=== PATIENT | male | born 1965 | race Caucasian/White ===

== ENCOUNTER 2022-03-14 14:05 | Emergency (ER) | payer OTHER, SELFPAY ==
[2022-03-14 14:49] VITALS: BP 156/95; PULSE 120; RESP 20; TEMP 38.5; O2SAT 92; BMI 52.3
[2022-03-14 15:53] LABS: PCR FLU A POSITIVE PCR FLU A (Negative); PCR FLU B Negative PCR FLU B (Negative); PCR RSV Negative PCR RSV (Negative)
[2022-03-14 15:54] LABS: SARS PCR* Negative SARS-CoV-2 (Negative)
--- NOTE | 2022-03-14 17:47 | ED.HA ---
HPI - Headache General Time Seen by Provider: 17:47 Date Seen: 03/14/22 Chief Complaint: Headache/Migraine Stated Complaint: Cough, headache Time Seen by Provider: 03/14/22 17:47 Source: patient, RN notes reviewed and old records reviewed Mode of arrival: ambulatory Limitations: no limitations History of Present Illness HPI Narrative: Roman is a very pleasant 56-year-old gentleman who comes to the emergency room with complaints of bitemporal headache increased phlegm and fever that has been on and off over the past month. Patient states that he started coughing in January but he took Mucinex and that seemed to help. Two weeks ago he had so much phlegm in his lungs that he actually laid down on the floor in order to help expel it according to his . She thinks that he was improving around Thanksgiving last week but then after the multiple grand children were present he was ?hit hard? and seemed to have more difficulty breathing. They do note that the young his grandchild was diagnosed with RSV. Patient states that in the past few days he has had increased headache, persistent cough to the point where some of his hernias are very painful as well as fever. He did take ibuprofen last night that complained of some abdominal pain and difficulty with stooling. He notes now he has loose stools and has been stooling today. He notes he has left ear pain but no sore throat no nasal drainage. No chest pain or history of heart problems. Denies history of DVT. Has not been bed ridden until today. He does note that he is currently awaiting his surgical consult for skin cancer on the back of his calf. He has not noticed any drainage or unusual redness in this area. Related Data Previous Rx's Medication Instructions Recorded albuterol sulfate 2.5 mg/3 mL 2.5 mg (3 mL) inhalation QID PRN 03/14/22 (0.083 %) solution for nebulization #75 mL amoxicillin 875 mg-potassium 1 tab PO BID #20 tabs 03/14/22 clavulanate 125 mg tablet azithromycin 250 mg tablet 250 mg PO DAILY #6 tabs 03/14/22 (Zithromax Z-Wilbert) prednisone 20 mg tablet 20 mg PO BID #10 tabs 03/14/22 Allergies Allergy/AdvReac Type Severity Reaction Status Date / Time No Known Drug Allergies Allergy Verified 03/14/22 14:59 Review of Systems Status of ROS: Reports: 10 or more systems reviewed and unremarkable except as noted in History and below Const: Reports: fever and fatigue Eyes: Denies: change in vision ENMT: Denies: throat pain, neck pain or hoarseness Cardio: Reports: lightheadedness and shortness of breath with exertion; Denies: chest pain or swelling of feet/ankles Resp: Reports: shortness of breath, cough and wheezing GI: Reports: abdominal pain (When coughing) and diarrhea; Denies: nausea or vomiting : Denies: painful urination Musculo: Denies: neck pain Neuro: Reports: headache (Bitemporal) Endo: Reports: fatigue Allergy/Immuno: Reports: wheezing Exam Narrative: Exam Narrative: Patient is alert and oriented. He is fatigued but nontoxic in appearance. His pupils are equal round and reactive. His sclera slightly injected. Left TM shows mild erythema without any bulging. Right TM within normal limits. Oral cavity with moist mucous membranes with no exudates or erythema in the posterior oropharynx. Neck is supple without lymphadenopathy. Range of motion is full. Heart with a tachycardic rate but normal rhythm. Lungs show crackles in the bases and wheezing in the upper apex on the left. Abdomen is obese soft nontender. Lower extremities without edema. Patient has a dime-size offer mass on the back of his right calf without surrounding erythema or drainage. Const: Vital Signs, click to edit/add: Vital Signs - 24 hr 03/14/22 14:49 03/14/22 18:20 Temperature 101.3 F H Pulse Rate [Right Pulse Oximeter] 120 H 100 Respiratory Rate 20 Blood Pressure [Ri ght Upper Arm] 156/95 H Pulse Oximetry 92 92 Oxygen Delivery Me thod Room Air Room Air Documenting provider has reviewed patient's vital signs: yes Course Course Hospital Course: Patient receptive to receiving ibuprofen as he has not received any. He is and told that he tested positive for influenza. Will give ibuprofen 600 mg along with omeprazole 20 mg for stomach protection. Patient also receptive to chest x-ray. Differential diagnosis does include COVID, influenza, RSV, bronchitis, pneumonia, sinusitis, COPD. At this time do not think that this is PE as patient has a fever as well as no record of inactivity or unusual lower extremity swelling or history of DVT. Patient test positive for influenza at this time. Reevaluation(s) Reevaluation #1: Repeat examination notes that wheezing has greatly improved. Patient appears to be feeling better although he has persistent headache. Further exam shows tenderness with percussion over the left frontal sinus. Patient does tell me that he has had blood come out of that of sinus previously. Vital Signs Vital signs: Initial Vital Signs Temperature 101.3 F H 03/14/22 14:49 Temperature Source Temporal Artery Scan 03/14/22 14:49 Pulse Rate 120 H 03/14/22 14:49 Respiratory Rate 20 03/14/22 14:49 Blood Pressure 156/95 H 03/14/22 14:49 Blood Pressure Mean 115 03/14/22 14:49 Blood Pressure Position Sitting 03/14/22 14:49 Pulse Oximetry 92 03/14/22 14:49 Oxygen Delivery Method 03/14/22 14:49 Vital Signs Temperature 101.3 F H 03/14/22 14:49 Pulse Rate 120 H 03/14/22 14:49 Respiratory Rate 20 03/14/22 14:49 Blood Pressure 156/95 H 03/14/22 14:49 Pulse Oximetry 92 03/14/22 14:49 Oxygen Delivery Method 03/14/22 14:49 Temperature 101.3 F H 03/14/22 14:49 Pulse Rate 100 03/14/22 18:20 Respiratory Rate 20 03/14/22 14:49 Blood Pressure 156/95 H 03/14/22 14:49 Pulse Oximetry 92 03/14/22 18:20 Oxygen Delivery Method 03/14/22 18:20 MDM - Headache MDM Narrative Medical decision making narrative: 1. Influenza a-likely this is the cause of patient's fever and headache. Patient did receive ibuprofen 600 mg here in the emergency room. He appears to be feeling mildly improved. Unfortunately he has been sick intermittently with recent increasing symptoms after Thanks and therefore not a candidate for Tamiflu. Neck is supple and range of motion full. No meningeal signs. 2. Bronchitis-patient notes intermittent respiratory wheezing and cough since January. I strongly suspect that he actually has underlying bronchitis and therefore would want to treat with an antibiotic. Chest x-ray without evidence of pneumonia at this time. Zithromax 500 mg today followed by 250 mg daily for 4 days. Albuterol nebulizers as needed. Patient did have improvement with a DuoNeb here in the emergency room. 3. Sinusitis-patient has tenderness over his left frontal sinus. He describes occasional blood from that Sanchez. No bleeding today. Recommend Augmentin 875 p.o. b.i.d. times 14 days. 2. Disposition-at this time we do talk about seeing CT to evaluate sinusitis or even blood test to do electrolytes but patient wishes to go home. I do request that if he has worsening symptoms worsening difficulty breathing as his O2 levels are 90-92% that he return to the emergency room for further evaluation. At that time would recommend imaging as well as blood draw. He does agree to this. Medical Records Attestation: I reviewed the patient's medical records. Lab Data Attestation: I reviewed the patient's lab results. Labs: Lab Results 03/14/22 Range/Units 15:01 SARS-CoV-2 (PCR) Negative SARS-CoV-2 (Negative) Influenza Type A (PCR) POSITIVE PCR FLU A A (Negative) Influenza Type B (PCR) Negative PCR FLU B (Negative) RSV (PCR) Negative PCR RSV (Negative) Imaging Data Chest x-ray: Attestation: I have reviewed the pertinent imaging results. My impression: Chronic lung markings but no obvious infiltrates Radiologist's impression: Cardiovascular and mediastinum: Heart size and vasculature are normal in caliber and appearance.? Mediastinum is within normal limits.? Lungs and pleural space: Lungs are clear.? No sign of infiltrate or mass.? No sign of pleural effusion.? No pneumothorax.? Bones and soft tissues: No significant findings.? IMPRESSION: Unremarkable chest. Discharge Plan Discharge Clinical Impression: Influenza A, Headache, Sinusitis, Bronchitis Patient Disposition: Home, Self-Care Condition: Improved Additional Instructions: Start Augmentin and Zithromax for sinusitis and bronchitis. Unfortunately this will not treat influenza a and you may continue to have fever and headache. I would recommend ibuprofen and Tylenol as needed. Push fluids. Nebulizer as needed. Return to the emergency room for worsening symptoms. Prescriptions: New azithromycin [Zithromax Z-Wilbert] 250 mg tablet 250 mg PO DAILY Qty: 6 0RF Rx Instructions: Take 500 mg or 2 tablets today. Thereafter 1 tablet daily for the remaining 4 days. amoxicillin-pot clavulanate 875-125 mg tablet 1 tab PO BID Qty: 20 0RF albuterol sulfate 2.5 mg /3 mL (0.083 %) solution for nebulization 2.5 mg inhalation QID PRNQty: 75 0RF prednisone 20 mg tablet 20 mg PO BID Qty: 10 0RF Follow Up/Referrals: Provider,Not a Local [Primary Care Provider] - Stand Alone Forms: [employer] Info Instructions
--- NOTE | 2022-03-14 17:57 | CRLHL7_ITS ---
For Patients: As a result of the Century Cures Act, medical imaging exams and procedure reports are released immediately into your electronic medical record. You may view this report before your referring provider. If you have questions, please contact your health care provider. INDICATION: WHEEZING TECHNIQUE: Chest 1 view. COMPARISON: None. FINDINGS: Cardiovascular and mediastinum: Heart size and vasculature are normal in caliber and appearance. Mediastinum is within normal limits. Lungs and pleural space: Lungs are clear. No sign of infiltrate or mass. No sign of pleural effusion. No pneumothorax. Bones and soft tissues: No significant findings. IMPRESSION: Unremarkable chest. Dictated by: Otis Aldana MD @ 03/14/2022 18:21:05 (Electronically Signed)
[2022-03-14] MEDS: IPRAT-ALBUT 0.5-2.5 MG/3 ML NEB 1 NEB IH (18:19)
[2022-03-14] MEDS: IBUPROFEN 200 MG TABLET 600 MG PO (18:19)
[2022-03-14] MEDS: OMEPRAZOLE 20 MG CAPSULE DR PO (18:19)
[2022-03-14 18:20] VITALS: PULSE 100; O2SAT 92
== END 2022-03-14 18:50 | disposition home or self-care (01) ==
PROVIDERS: Emergency Provider Family Medicine
DX: J10.1 Influenza due to other identified influenza virus with other respiratory manifestations (principal); J01.90 Acute sinusitis, unspecified; J40 Bronchitis, not specified as acute or chronic; Z20.822 Contact with and (suspected) exposure to COVID-19
CPT/HCPCS: 71046; 87502; 87634; 87635; 94640; 99284; A9270

== ENCOUNTER 2024-06-18 18:09 | Outpatient (CLI) | payer OTHER, SELFPAY | END 2024-06-18 18:10 | disposition home or self-care (01) | PROVIDERS: Visit Provider Nurse Practitioner Family | DX: R05.9 Cough, unspecified (principal) | CPT/HCPCS: 87070 ==

== ENCOUNTER 2025-01-27 15:00 | Inpatient (IN) | payer OTHER, SELFPAY ==
[2025-01-27] VITALS (20 sets, daily range): BP systolic 117–137; BP diastolic 69–82; PULSE 86–111; RESP 11–36; TEMP 37–38.8; O2SAT 89–95; BMI 44.1
--- OUTSIDE RECORDS SUMMARY | 2025-01-27 15:04 | XMS_ITS | Clinical Summary ---
Author Organization [facility] Address [address] [place] [id number] Care Team Providers Care Breaker Table Worker Name Role Phone Guilherme Greenberg MD Primary Care Provider + Allergies No known active allergies Medications lisinopriL (PRINIVIL; ZESTRIL) 40 mg tabletIndicatio ns:HTN (hypertension) Take 1 Tablet (40 mg) by mouth once daily. 90 Tablet 1 5 Active LORazepam 1 mg tabletIndicatio ns:Fear of flying Take either 1/2 or 1 whole tab 30 minutes before flying 2 Tablet 5 01/16/20 25 Discontinu ed(*Med complete/R egimen complete/L evel of care change) Active Problems No known active problems Encounters Date Type Department Care Team Description 01/17/2025 Telephone [facility] [address] [place] [address] Guilherme Greenberg MD Referral 01/15/2025 7:55 AM CDT Office Visit [facility] [address] [place] [address] Guilherme Greenberg MD Blood Pressure (Follow up, increased lisinopril) 01/15/2025 Travel 12/03/2024 7:30 AM CDT Office Visit [facility] [address] [place] [address] Guilherme Greenberg MD Blood Pressure (Follow up) 12/03/2024 Travel from Last 3 Months Immunizations Immunization Administration Dates Next Due Mumps 09/08/1978 Rubella 09/08/1978 Td (Age >=7 Years) 09/08/1978 Tdap 04/21/2021,02/08/2011 Family History Medical History Relation Name Comments Alcoholism Brother 1 Felice age 58, in sleep Diabetes Brother 1 Felice No Known Problems Brother 2 Luis Antonio Gout Father Hypertension Father Cancer-breast Mother Hypertension Sister 1 Aislinn No Known Problems Sister 2 Lisa Relation Name Status Comments Brother 1 Felice Brother 2 Luis Antonio Alive Father Alive Mother Alive Sister 1 Aislinn Alive Sister 2 Lisa Alive Social History Tobacco Use Types Packs/Day Years Used Date Smoking Tobacco: Former Cigarettes Q uit: 04/17/1985 Smokeless Tobacco: Never Tobacco Cessation:Counseling Given: Yes Alcohol Use Standard Drinks/Week Comments Yes 1 (1 standard drink = 0.6 oz pur e alcohol) 4-5 beers per week PHQ-2 Answer Date Recorded PHQ-2 TOTAL SCORE 0 05/23/2024 Social Connections Answer Date Recorded Do you often feel lonely or isolated from those around you? 0 01/15/2025 Alcohol Use Answer Date Recorded How often do you have a drink containing alcohol ? 2 01/15/2025 How many drinks containing a lcohol do you have on a typical day when you are drinking? 1 01/15/2025 How often do you have five or more drinks on one occasion? 1 01/15/2025 Financial Resource Strain Answer Date R ecorded Difficulty of Paying Living Expenses 3 01/15/2025 Difficulty of Paying Living Expenses Not on file 01/15/2025 Food Insecurity Answer Date Recorded Do you worry your food will run out before you are able to buy more? 1 01/15/2025 Transportation Needs Answer Date Record ed Does lack of transportation keep you from medica l appointments? 1 01/15/2025 Does lack of transportation keep you from work, meetings or getting things that you need? 1 01/15/2025 Housing Stability Answer Date Recorded What is your housing situation today? 1 01/15/2025 Utilities Answer Date Recorded Do you have trouble paying f or utilities (for example, heat, electricity, water, phone)? 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 Not on file Not on file Obstetrics History Last Filed Vital Signs Vital Sign Reading Time Taken Comments Blood Pressure 147/89 01/15/2025 7:50 AM CDT Pulse 78 01/15/2025 7:50 AM CDT Temperature 36.5 C (97.7 F) 05/23/2024 7:41 AM VIRTUAL RECRUITER Respiratory Rate 18 12/12/2018 11:0 0 AM CDT Oxygen Saturation 95% 01/15/2025 7:50 AM CDT Inhaled Oxygen Concentration - - Weight 133.5 kg (294 lb 6.4 oz) 01/15/2025 7:50 AM CDT Height 174 cm (5' 8.5) 01/15/2025 7:50 AM CDT Body Mass Index 44.11 01/15/2025 7:50 AM CDT Plan of Treatment Upcoming Encounters Date Type Department Care Team (Late st Contact Info) Description 02/04/2025 9:00 AM CDT Patient Outreach [address] [address] Dulce Joseph, RN [address] [address] Health Maintenance Due Date Last Done Comments HIV for age 15-65 1980 Hepatitis C screening for ag e 18-79 1983 Hepatitis B series for 19+ ( 1 of 3 - 19+ 3-dose series) 1984 Pneumococcal series for age 50+ (1 of 2 - PCV) 1984 Zoster (shingles) series for age 50+ (1 of 2) 2015 COVID-19 vaccine series (1 - season) 2024 Influenza Vaccine (#1) 2024 Depression screening for age 12+ 05/23/2025 05/23/2024, 01/03/2024, 01/04/2023, Additional history exists BMI (ht and wt on same day) for age 18+ 01/15/2026 01/15/2025, 12/03/2024, 05/23/2024, Additional history exists Fecal testing sDNA-FIT ([place] guard) for age 45-75 06/24/2026 06/25/2023 Lipids for age 45-75 05/23/2029 05/23/2024, 01/04/2023, 04/21/2021, Additional history exists Tetanus booster 04/21/2031 04/21/2021, 01/16, 09/08/1978 RSV vaccine for adults or (1 - 1-dose 75+ series) 2040 Procedures Procedure Name Priority Date/Time Associated Diagnosis Comments HEMOGLOBIN A1C Routine 01/15/2025 8:21 AM CDT Elevated blood sugar BASIC METABOLIC PANEL Routine 01/15/2025 8:21 AM CDT Hypertension, unspecified type LIPID PANEL W REFLEX MEASURED LDL Routine 05/23/2024 9:07 AM VIRTUAL RECRUITER Routine general medical examination [facility] SDNA-FIT EXTERNAL (COLOGUARD) Routine 06/25/2023 8:15 AM CDT Screening for colon cancer from Last 3 Months or Most Recently Relevant to Health Maintenance Results * (ABNORMAL) HEMOGLOBIN A1C (01/15/2025 8:21 AM CDT) HEMOGLOBIN A1C 6.9(H) <5.7 % 01/16/2025 4:24 AM CDT [facility] Comment: For someone without known diabetes, a hemoglobin A1c value of 6.5% or greater indicates that they may have diabetes and this should be confirmed with a follow-up test. For someone with known diabetes, a value <7% indicates that their diabetes is well controlled and a value greater than or equal to 7% indicates suboptimal control. A1c targets should be individualized based on duration of diabetes, age, comorbid conditions, and other considerations. Currently, no consensus exists regarding use of hemoglobin A1c for diagnosis of diabetes for children. Blood BLOOD SPECIMEN / Unknown [facility] / Unknown 01/15/2025 8:21 AM CDT 01/15/2025 8:21 AM CDT Guilherme Greenberg MD CHEMISTRY Final Re sult [facility] [address] [place] [address], [place] [phone] * (ABNORMAL) BASIC METABOLIC PANEL (01/15/2025 8:21 AM CDT) SODIUM 138 135 - 146 mmol/L 01/16/2025 4:07 AM CDT [facility] POTASSIUM 4.6 3.5 - 5.3 mmol/L 01/16/2025 4:07 AM CDT [facility] CARBON DIOXIDE 26 20 - 32 mmol/L 01/16/2025 4:07 AM CDT [facility] GLUCOSE 148(H) 65 - 99 mg/dL 01/16/2025 4:07 AM CDT [facility] Comment: Fasting reference interval For someone without known diabetes, a glucose value >125 mg/dL indicates that they may have diabetes and this should be confirmed with a follow-up test. CALCIUM 9.5 8.6 - 10.3 mg/dL 01/16/2025 4:07 AM CDT [facility] CREATININE 0.74 0.70 - 1.30 mg/dL 01/16/2025 4:07 AM CDT [facility] BUN/CREATININE RATIO SEE NOTE: 6 - 22 (calc) 01/16/2025 4:07 AM CDT [facility] Comment: Not Reported: BUN and Creatinine are within reference range. EGFR 104 > OR = 60 mL/min/1. 73m2 01/16/2025 4:07 AM CDT [facility] UREA NITROGEN (BUN) 12 7 - 25 mg/dL 01/16/2025 4:07 AM CDT [facility] ELECTROLYTE BALANCE 8 7 - 17 mmol/L (calc) 01/16/2025 4:07 AM CDT [facility] CHLORIDE 104 98 - 110 mmol/L 01/16/2025 4:07 AM CDT [facility] Blood BLOOD SPECIMEN / Unknown [facility] / Unknown 01/15/2025 8:21 AM CDT 01/15/2025 8:21 AM CDT Guilherme Greenberg MD CHEMISTRY Final Re sult nodila [facility] [address] [place] [address], [place] [phone] * (ABNORMAL) LIPID PANEL W REFLEX MEASURED LDL (05/23/2024 9:07 AM VIRTUAL RECRUITER) CHOLESTEROL, TOTAL 221(H) <200 mg/dL [facility] HDL CHOLESTEROL 49 > OR = 40 mg/dL [facility] TRIGLYCERIDES 142 <150 mg/dL [facility] LDL-CHOLESTEROL 145(H) mg/dL (calc) [facility] Comment: Reference range: <100 Desirable range <100 mg/dL for primary prevention; <70 mg/dL for patients with CHD or diabetic patients with > or = 2 CHD risk factors. LDL-C is now calculated using the Ford-Ben calculation, which is a validated novel method providing better accuracy than the Friedewald equation in the estimation of LDL-C. Ford GARG et al. SUJIT. 2013;310(19): 0985-8918 (http://education.Cirro.Avansera/faq/AQV717) CHOL/HDLC RATIO 4.5 <5.0 (calc) [facility] NON HDL CHOLESTEROL 172(H) <130 mg/dL (calc) [facility] Comment: For patients with diabetes plus 1 major ASCVD risk factor, treating to a non-HDL-C goal of <100 mg/dL (LDL-C of <70 mg/dL) is considered a therapeutic option. Blood BLOOD SPECIMEN / Unknown 05/23/2024 9:07 AM VIRTUAL RECRUITER 05/23/2024 9:07 AM VIRTUAL RECRUITER Narrative [facility] - 05/24/2024 3:44 AM VIRTUAL RECRUITER FASTING:YES FASTING: YES Guilherme Greenberg MD CHEMISTRY Final Re sult nodila [facility] [address] [place] [address], [place] [phone] [facility] [address] [place] [address] * SDNA-FIT EXTERNAL (COLOGUARD) (06/25/2023 8:15 AM CDT) NONINV COLON CA DNA+OCC BLD SCRN STL-IMP Negative Negative 06/30/2023 11:03 AM CDT [facility] (CLIA #:[id number]) Comment: NEGATIVE TEST RESULT. A negative Cologuard result indicates a low likelihood that a colorectal cancer (CRC) or advanced adenoma (adenomatous polyps with more advanced pre-malignant features) is present. The chance that a person with a negative Cologuard test has a colorectal cancer is less than 1 in 1500 (negative predictive value >99.9%) or has an advanced adenoma is less than 5.3% (negative predictive value 94.7%). These data are based on a prospective cross-sectional study of 10,000 individuals at average risk for colorectal cancer who were screened with both Cologuard and colonoscopy. (Js Ruelas et al, N Engl J Med 2014;370(14):1161-8109) The normal value (reference range) for this assay is negative. COLOGUARD RE-SCREENING RECOMMENDATION: Periodic colorectal cancer screening is an important part of preventive healthcare for asymptomatic individuals at average risk for colorectal cancer. Following a negative Cologuard result, the [place] [employer] Society and U.S. Multi-Society Task Force screening guidelines recommend a Cologuard re-screening interval of 3 years. References: [place] [employer] Guideline for Colorectal Cancer Screening: https://www.cancer.org/cancer/vlyyu-aiprul-jzorgg/hubawgply-ionzwbplg-wzxqwsd/ac s-rec ommendations.html.; Edgar DK, Froy CR, Brayan TrevizoK, Colorectal Cancer Screening: Recommendations for Physicians and Patients from the U.S. Multi-Society Task Force on Colorectal Cancer Screening , Am J Gastroenterology 2017; 112:2735-2549. TEST DESCRIPTION: Composite algorithmic analysis of stool DNA-biomarkers with hemoglobin immunoassay. Quantitative values of individual biomarkers are not reportable and are not associated with individual biomarker result reference ranges. Cologuard is intended for colorectal cancer screening of adults of either sex, 45 years or older, who are at average-risk for colorectal cancer (CRC). Cologuard has been approved for use by the U.S. FDA. The performance of Cologuard was established in a cross sectional study of average-risk adults aged 50-84. Cologuard performance in patients ages 45 to 49 years was estimated by sub-group analysis of near-age groups. Colonoscopies performed for a positive result may find as the most clinically significant lesion: colorectal cancer [4.0%], advanced adenoma (including sessile serrated polyps greater than or equal to 1cm diameter) [20%] or non- advanced adenoma [31%]; or no colorectal neoplasia [45%]. These estimates are derived from a prospective cross-sectional screening study of 10,000 individuals at average risk for colorectal cancer who were screened with both Cologuard and colonoscopy. (Js Collado al, N Engl J Med 2014;370(14):7165-8126.) Cologuard may produce a false negative or false positive result (no colorectal cancer or precancerous polyp present at colonoscopy follow up). A negative Cologuard test result does not guarantee the absence of CRC or advanced adenoma (pre-cancer). The current Cologuard screening interval is every 3 years. ([place] [employer] and U.S. Multi-Society Task Force). Cologuard performance data in a 10,000 patient pivotal study using colonoscopy as the reference method can be accessed at the following location: www.[employer].Avansera/results. Additional description of the Cologuard test process, warnings and precautions can be found at www.cologuard.com. Stool specimen (specimen) (Rectum) 06/25/2023 8:15 AM CDT 06/27/2023 12:50 PM CDT us Guilherme Greenberg MD URINE Final Re sult [facility] (CLIA #:[id number]) [place] [address], [place] [phone] from Last 3 Months or Most Recently Relevant to Health Maintenance Insurance [employer] Care Teams Breaker Table Worker Relationship Specialty Start Date End Date Votel, Guilherme Henson MD [address] [place] [address] PCP - General Family Practice 12/27/22
--- NOTE | 2025-01-27 15:34 | CRLHL7_ITS ---
For Patients: As a result of the Cures Act, medical imaging exams and procedure reports are released immediately into your electronic medical record. You may view this report before your referring provider. If you have questions, please contact your health care provider. INDICATION: Shortness of breath. COMPARISON: 01/23/2025 and 06/18/2024 TECHNIQUE: PA and lateral views of the chest. FINDINGS: Medical Devices: Oxygen tubing overlies the left upper hemithorax and neck. Lung Volumes: Adequate inspiration. No significant atelectasis. Lungs: Bibasilar subsegmental atelectasis. No coalescent consolidation to indicate bronchopneumonia. Correlate with the patient`s clinical status in this regard. Pleura and Pleural spaces: No significant pleural effusion. No pneumothorax. Mediastinum: Normal cardiomediastinal silhouette. Bony Thorax and Soft Tissues: No significant incidental findings. Chronic unchanged right hemidiaphragmatic eventration. IMPRESSION: Bibasilar subsegmental atelectasis. No coalescent consolidation to indicate bronchopneumonia. Correlate with the patient`s clinical status in this regard. Incidental findings described in the body of the report. Dictated by Bryon Powers MD @ 01/27/2025 4:22:02 PM (Electronically Signed)
[2025-01-27] MEDS: ACETAMINOPHEN 500 MG TABLET 1000 MG PO (15:53)
--- NOTE | 2025-01-27 16:14 | ED_ITS ---
HPI - General Adult General Chief complaint: Shortness of Breath/Dyspnea Stated complaint: Shortness of breath Time Seen by Provider: 01/27/25 15:31 Source: patient Mode of arrival: ambulatory Limitations: no limitations History of Present Illness HPI narrative: 59-year-old male coming in today complaining shortness of breath. Patient has been sick for over 1 week. He was seen in the urgent care last week and started on prednisone. He states that he is just not getting any better in the last 24 hours has gotten even worse. He states that he does have an albuterol nebulizer at home which has not been helping. He is febrile, cough is productive. Has a hard time sleeping at night. Everyone is sick at his home he states. No chest pain. States that his sputum is sometimes red or brown. He is not vomiting. Related Data Home Medications ?Medication ?Instructions ?Recorded ?Confirmed lisinopril 40 mg tablet 40 mg PO DAILY 01/27/2501/15 Previous Rx's ?Medication ?Instructions ?Recorded albuterol sulfate 2.5 mg/3 mL 2.5 mg (3 mL) inhalation Q4-6H PRN 06/18/24 (0.083 %) solution for nebulization shortness of breat h or wheezing #75 mL prednisone 20 mg tablet See Rx Instructions PO QDAY Cough 01/23/25 #12 tabs Allergies Allergy/AdvReac Type Severity Reaction Status Date / Time No Known Drug Allergies Allergy Verified 01/27/25 17:38 Review of Systems Status of ROS: Reports: 10 or more systems reviewed and unremarkable except as noted in History and below [facility] Medical History Laceration without foreign body of abdominal wall, unspecified quadrant with penetration into peritoneal cavity, initial encounter ?S31.619A - Laceration without foreign body of abdominal wall, unspecified quadrant with penetration into peritoneal cavity, initial encounter (ICD-10) Surgical History H/O left inguinal hernia repair ?Z98.890 - Other specified postprocedural states (ICD-10) ?Z87.19 - Personal history of other diseases of the digestive system (ICD-10) H/O abdominal surgery ?Z98.890 - Other specified postprocedural states (ICD-10) Social History Narrative: 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 Alert and oriented. Answers questions appropriately. Mood and affect are appropriate. Thoughts are goal oriented and rational. No tangential or magical thinking noted. Patient cannot complete a full sentence without needing to catch his breath. He is tachypneic with a respiratory rate of 36, he is febrile and he is only saturating 89% on room air. HEENT: Normocephalic atraumatic. Pupils are equally round reactive to light. Extraocular muscles are intact. Conjunctivae are moist without any icterus noted. Moist mucous membranes. Posterior pharynx is normal. Cardiovascular: Tachycardic, regular rhythm. Lungs: Diffuse wheezing throughout both lungs. Abdomen: Protuberant and soft with normal bowel sounds. Extremities: Bilateral lower extremities are without pitting edema. Skin: Well perfused. Const: Vital Signs, click to edit/add: Vital Signs - 24 hr 01/27/25 15:14 01/27/25 15:15 01/27/25 16:18 Temperature 101.9 F H Pulse Rate Pulse Rate [Pulse Oximeter] 110 H Respiratory Rate 36 H Blood Pressure Blood Pressure [Ri ght Upper Arm] 137/69 Pulse Oximetry 89 89 92 Oxygen Delivery Me thod Room Air Room Air Nasal Cannula Oxygen Flow Rate 2 01/27/25 16:38 01/27/25 16:53 01/27/25 16:54 Temperature 101.1 F H Pulse Rate 107 H 111 H Pulse Rate [Pulse Oximeter] Respiratory Rate 32 H 36 H Blood Pressure 125/80 Blood Pressure [Ri ght Upper Arm] Pulse Oximetry 91 91 Oxygen Delivery Me thod Oxygen Flow Rate 01/27/25 16:55 01/27/25 17:00 01/27/25 17:09 Temperature Pulse Rate 109 H 110 H Pulse Rate [Pulse Oximeter] Respiratory Rate 32 H 11 L 26 H Blood Pressure Blood Pressure [Ri ght Upper Arm] Pulse Oximetry 93 95 Oxygen Delivery Me thod Nasal Cannula Oxygen Flow Rate 2 01/27/25 17:15 01/27/25 17:30 01/27/25 18:07 Temperature Pulse Rate 102 H 101 H Pulse Rate [Pulse Oximeter] Respiratory Rate 20 16 24 Blood Pressure Blood Pressure [Ri ght Upper Arm] Pulse Oximetry 89 92 Oxygen Delivery Me thod Oxygen Flow Rate 01/27/25 18:09 01/27/25 18:15 01/27/25 18:17 Temperature 98.9 F Pulse Rate 99 93 Pulse Rate [Pulse Oximeter] Respiratory Rate 21 32 H Blood Pressure 117/82 Blood Pressure [Ri ght Upper Arm] Pulse Oximetry 93 91 Oxygen Delivery Me thod Oxygen Flow Rate 01/27/25 18:30 01/27/25 19:10 Temperature Pulse Rate 95 Pulse Rate [Pulse Oximeter] Respiratory Rate 20 Blood Pressure Blood Pressure [Ri ght Upper Arm] Pulse Oximetry 90 91 Oxygen Delivery Me thod Room Air Nasal Cannula Oxygen Flow Rate 2 Course Course ED Course: Patient placed on oxygen. DuoNeb was given. IV Solu-Medrol was administered. EKG, read by me, shows sinus tachycardia with a pulse of 109. Chest x-ray does not show evidence of pneumonia. 2nd DuoNeb was given as 1st did not produce much resolved. CBC shows an elevated white cell count of 14.9 with 83% neutrophils. Sodium is low at 130. Lactate is elevated at 2.3. 1 L of normal saline started at this time. Third DuoNeb is given. Patient feels better at this time however remains hypoxic with an oxygen saturation of 87-90% on room air. IV magnesium is given at this time. Troponin is elevated at 0.06, CRP 2.4. Triple swab is negative. [place] screen is negative. Chest CT is obtained showing signs concerning for pneumonia. IV Rocephin and azithromycin of started at this time. Blood cultures are pending. Repeat EKG at 2:00 a.m. shows normal sinus rhythm with a pulse of 91. Pulse and temperature both come down to normal ranges. I do not believe that this patient is septic. Repeat troponin is less than 0.01. Vital Signs Vital signs: Initial Vital Signs Pulse Oximetry 89 01/27/25 15:14 Oxygen Delivery Method Room Air 01/27/25 15:14 Vital Signs Pulse Oximetry 89 01/27/25 15:14 Oxygen Delivery Method Room Air 01/27/25 15:14 Temperature 98.9 F 01/27/25 18:17 Pulse Rate 95 01/27/25 18:30 Respiratory Rate 20 01/27/25 18:30 Blood Pressure 117/82 01/27/25 18:09 Pulse Oximetry 91 01/27/25 19:10 Oxygen Delivery Method Nasal Cannula 01/27/25 19:10 Oxygen Flow Rate 2 01/27/25 19:10 Medications Administered Medications: Discontinued Medications Generic Name Dose Route Start Last Admin Trade Name Bradleyq PRN Reason Stop Dose Admin Acetaminophen 1,000 mg 01/27/25 15:35 01/27/25 15:53 Acetaminophen 500 Mg Tablet PO 01/27/25 15:36 1,000 mg ONCE ONE Administration Albuterol/Ipratropium 1 neb 01/27/25 15:31 01/27/25 16:31 Iprat-Albut 0.5-2.5 Mg/3 Ml [facility] 01/27/25 15:32 1 neb ONCE ONE Administration Albuterol/Ipratropium 1 [facility] 01/27/25 16:45 01/27/25 16:56 Iprat-Albut 0.5-2.5 Mg/3 Ml [facility] 01/27/25 16:46 1 neb ONCE ONE Administration Albuterol/Ipratropium 1 [facility] 01/27/25 17:14 01/27/25 17:22 Iprat-Albut 0.5-2.5 Mg/3 Ml [facility] 01/27/25 17:15 1 neb ONCE ONE Administration Sodium Chloride 1,000 mls @ 1,000 mls/hr 01/27/25 16:45 01/27/25 18:57 0.9 % Sodium Chloride 1000 Ml IV 01/27/25 17:44 Infused .Q1H DARYL Infusion Magnesium Sulfate 2 gm in 50 mls @ 150 mls/hr 01/27/25 17:14 01/27/25 18:28 Magnesium Iv IVPB 01/27/25 17:33 Infused ONCE ONE Infusion Ibuprofen 600 mg 01/27/25 17:21 01/27/25 17:28 Ibuprofen 200 Mg Tablet PO 01/27/25 17:22 600 mg ONCE ONE Administration Lorazepam 0.5 mg 01/27/25 17:53 01/27/25 18:17 Lorazepam 2 Mg/Ml Inj IVP 01/27/25 17:54 Not Given ONCE ONE Methylprednisolone Sodium Succinate 125 mg 01/27/25 15:31 01/27/25 16:33 Methylprednisolone Sod Succ 62.5 Mg/Ml (125) IVP 01/27/25 15:32 125 mg ONCE ONE Administration Medical Decision Making MDM Narrative Medical decision making narrative: 59 year male presenting with pneumonia and acute hypoxic respiratory failure. Patient will be admitted for further management. Lab Data Lab results reviewed: Yes I reviewed the patient's lab results Labs: Lab Results 01/27/25 01/27/25 01/27/25 Range/Units 15:55 16:27 18:32 WBC 14.93 H (4.50-11.00) K/uL RBC 5.07 (4.30-5.90) m/uL Hgb 15.6 (13.5-17.5) gm/dL Hct 44.1 (37.0-53.0) % MCV 87 (80-100) fL MCH 31 (26-34) pg MCHC 35 (32-36) gm/dL RDW Coeff of Scot 13.0 (11.5-15.5) % Plt Count 227 (140-440) K/uL Neut % (Auto) 83.2 H (42.0-72.0) % Lymph % (Auto) 7.8 L (20-44) % [place] % (Auto) 8.0 (0.0-11.0) % Eos % (Auto) 0.1 (0.0-7.0) % Baso % (Auto) 0.2 (0.0-3.0) % Neut # (Auto) 12.40 H (1.7-7.0) K/uL Lymph # (Auto) 1.20 (0.90-2.90) K/uL [place] # (Auto) 1.20 H (0.00-0.90) K/UL Eos # (Auto) 0.00 (0.00-0.50) K/uL Baso # (Auto) 0.00 (0.00-0.30) K/uL Abs Immat Gran (auto) 0.10 (0.00-0.30) K/uL Imm/Tot Granulo (auto) 0.7 % Sodium 130 L (135-149) mmol/L Potassium 3.8 (3.6-5.1) mmol/L Chloride 96 (96-114) mmol/L Carbon Dioxide 26 (20-32) mmol/L Anion Gap 8 (7-15) mEq/L BUN 11 (7-30) mg/dL Creatinine 0.7 (0.5-1.5) mg/dL Estimated Creat Clear 109.93 Estimated GFR 106 ml/min Glucose 126 H (60-115) mg/dL Lactate 2.3 H (0.5-1.9) mmol/L Calcium 9.4 (8.4-10.6) mg/dL Magnesium 1.9 (1.5-2.6) mg/dL Total Bilirubin 0.7 (0.1-1.5) mg/dL Direct Bilirubin 0.3 (0.0-0.5) mg/dL AST 69 H (12-35) U/L ALT 182 H (4-50) U/L Alkaline Phosphatase 82 (40-150) U/L Troponin I 0.06 H* < 0.01 (0.01-0.04) ng/mL C-Reactive Protein 2.4 H (0.5-1.0) mg/dL Total Protein 7.6 (6.0-8.3) g/dL Albumin 4.3 (3.3-5.0) g/dL Procalcitonin 0.13 (<0.50) ng/mL SARS-CoV-2 (PCR) Negative SARS-CoV-2 (Negative) Monoscreen Negative (Negative) Influenza Type A (PCR) Negative PCR FLU A (Negative) Influenza Type B (PCR) Negative PCR FLU B (Negative) RSV (PCR) Negative PCR RSV (Negative) Imaging Data Chest x-ray: Attestation: I have reviewed the pertinent imaging results. Radiologist's impression: TECHNIQUE: PA and lateral views of the chest. FINDINGS: Medical Devices: Oxygen tubing overlies the left upper hemithorax and neck. Lung Volumes: Adequate inspiration. No significant atelectasis. Lungs: Bibasilar subsegmental atelectasis. No coalescent consolidation to indicate bronchopneumonia. Correlate with the patient`s clinical status in this regard. Pleura and Pleural spaces: No significant pleural effusion. No pneumothorax. Mediastinum: Normal cardiomediastinal silhouette. Bony Thorax and Soft Tissues: No significant incidental findings. Chronic unchanged right hemidiaphragmatic eventration. IMPRESSION: Bibasilar subsegmental atelectasis. No coalescent consolidation to indicate bronchopneumonia. Correlate with the patient`s clinical status in this regard. Incidental findings described in the body of the report. CT scan - chest: Attestation: I have reviewed the pertinent imaging results. Radiologist's impression: TECHNIQUE: CT chest pulmonary angiogram acquired with 95 cc of Isovue 370 IV contrast. Sagittal, coronal and maximum intensity projection reformatted images submitted for review. COMPARISON: None. FINDINGS: Within the limitations of motion artifact and suboptimal pulmonary artery opacification, there is no evidence of pulmonary embolus. Distal segmental and subsegmental pulmonary emboli are not excluded based on this exam. Main pulmonary artery is normal in caliber. Thoracic aorta is normal in caliber. Heart size is within normal limits. No pathologic lymphadenopathy. No pleural or pericardial effusion. Soft tissues of the thoracic wall are unremarkable. No pneumothorax. Mild near diffuse bilateral bronchial wall thickening. Bilateral subcentimeter nodular and ill-defined ground-glass opacities greatest in the right upper and left lower lobes. Mild consolidation in the posterior left lower lobe. Cholelithiasis. Visualized upper abdomen is otherwise unremarkable. Degenerative changes of the spine. No acute or suspicious osseous abnormality. IMPRESSION: 1. Bilateral subcentimeter nodular and ground-glass opacities with mild left lower lobe consolidation, worrisome for pneumonia. 2. Within the limitations of motion artifact and suboptimal pulmonary artery opacification, there is no evidence of pulmonary embolus. Distal segmental and subsegmental pulmonary emboli are not excluded based on this exam. 3. Bilateral bronchial wall thickening is likely infectious/inflammatory. ECG Data Attestation: I personally reviewed and interpreted this ECG as follows: Discharge Plan Discharge Clinical Impression: Pneumonia, Acute hypoxic respiratory failure Patient Disposition: Admitted As Inpatient Condition: Stable
[2025-01-27] MEDS: IPRAT-ALBUT 0.5-2.5 MG/3 ML NEB 1 NEB IH ×4 (16:31→21:13)
[2025-01-27] MEDS: METHYLPREDNISOLONE SOD SUCC 62.5 MG/ML (125) 125 MG IVP (16:33)
[2025-01-27 16:34] LABS: Lactate* 2.3 mmol/L (0.5-1.9)
[2025-01-27 16:43] LABS: PCR FLU A Negative PCR FLU A (Negative); PCR FLU B Negative PCR FLU B (Negative); PCR RSV Negative PCR RSV (Negative); SARS PCR* Negative SARS-CoV-2 (Negative)
[2025-01-27 16:50] LABS: Mono Screen* Negative (Negative)
[2025-01-27 16:52] LABS: Albumin* 4.3 g/dL (3.3-5.0); Chloride* 96 mmol/L (96-114); Sodium* 130 mmol/L (135-149)
[2025-01-27 16:53] LABS: Potassium* 3.8 mmol/L (3.6-5.1)
[2025-01-27 16:55] LABS: Anion Gap 8 mEq/L (7-15); Blood Urea Nitrogen* 11 mg/dL (7-30); Carbon Dioxide* 26 mmol/L (20-32); Creatinine* 0.7 mg/dL (0.5-1.5); Est. Creatinine Clearance* 109.93; Estimated Glomerular Filt Rate 106 ml/min
[2025-01-27 16:56] LABS: Alanine Aminotransferase* 182 U/L (4-50); Alkaline Phosphatase* 82 U/L (40-150); Aspartate Amino Transferase* 69 U/L (12-35); Bilirubin Direct* 0.3 mg/dL (0.0-0.5); Bilirubin Total* 0.7 mg/dL (0.1-1.5); Calcium* 9.4 mg/dL (8.4-10.6); Glucose* 126 mg/dL (60-115); Total Protein* 7.6 g/dL (6.0-8.3)
[2025-01-27 17:11] LABS: Procalcitonin* 0.13 ng/mL (<0.50)
[2025-01-27 17:22] LABS: Hematocrit* 44.1 % (37.0-53.0); Hemoglobin* 15.6 gm/dL (13.5-17.5); Immature Granulocytes Abs Auto 0.10 K/uL (0.00-0.30); Immature Granulocytes Pct Auto 0.7 %; Lymphocytes Absolute Auto 1.20 K/uL (0.90-2.90); Mean Corpuscular HGB Conc 35 gm/dL (32-36); Mean Corpuscular Hemoglobin 31 pg (26-34); Mean Corpuscular Volume 87 fL (80-100); RDW Coefficient of Variation % 13.0 % (11.5-15.5); Red Blood Count* 5.07 m/uL (4.30-5.90); Slide Review Reflex No; White Blood Count* 14.93 K/uL (4.50-11.00)
[2025-01-27] MEDS: MAGNESIUM IV 2 GM/50 ML PIGGYBACK IVPB (17:22)
--- NOTE | 2025-01-27 17:24 | CRLHL7_ITS ---
For Patients: As a result of the Century Cures Act, medical imaging exams and procedure reports are released immediately into your electronic medical record. You may view this report before your referring provider. If you have questions, please contact your health care provider. INDICATIONS: Shortness of breath. TECHNIQUE: CT chest pulmonary angiogram acquired with 95 cc of Isovue 370 IV contrast. Sagittal, coronal and maximum intensity projection reformatted images submitted for review. COMPARISON: None. FINDINGS: Within the limitations of motion artifact and suboptimal pulmonary artery opacification, there is no evidence of pulmonary embolus. Distal segmental and subsegmental pulmonary emboli are not excluded based on this exam. Main pulmonary artery is normal in caliber. Thoracic aorta is normal in caliber. Heart size is within normal limits. No pathologic lymphadenopathy. No pleural or pericardial effusion. Soft tissues of the thoracic wall are unremarkable. No pneumothorax. Mild near diffuse bilateral bronchial wall thickening. Bilateral subcentimeter nodular and ill-defined ground-glass opacities greatest in the right upper and left lower lobes. Mild consolidation in the posterior left lower lobe. Cholelithiasis. Visualized upper abdomen is otherwise unremarkable. Degenerative changes of the spine. No acute or suspicious osseous abnormality. IMPRESSION: 1. Bilateral subcentimeter nodular and ground-glass opacities with mild left lower lobe consolidation, worrisome for pneumonia. 2. Within the limitations of motion artifact and suboptimal pulmonary artery opacification, there is no evidence of pulmonary embolus. Distal segmental and subsegmental pulmonary emboli are not excluded based on this exam. 3. Bilateral bronchial wall thickening is likely infectious/inflammatory. Dictated by Dong Sigala MD @ 01/27/2025 6:53:37 PM Please note that all CT scans at this facility use dose modulation, iterative reconstruction, and/or weight-based dosing when appropriate to reduce radiation dose to as low as reasonably achievable. Dictated by: Dong Sigala MD @ 01/27/2025 18:54:37 (Electronically Signed)
[2025-01-27] MEDS: IBUPROFEN 200 MG TABLET 600 MG PO (17:28)
[2025-01-27 19:21] LABS: PCO2 VBG 39 mmHG (40-50); pH VBG 7.456 (7.32-7.43)
[2025-01-27 19:22] LABS: HCO3 VBG 27 mmol/L (21-28); PO2 VBG 43.6 mmHG (25-47)
[2025-01-27] MEDS: cefTRIAXone 1 GM in 0.9 % SODIUM CHLORIDE Mini-bag 100 ML IVPB (19:24)
--- NOTE | 2025-01-27 19:47 | PM.IMHP1 ---
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 Monitor VS. Status: Acute (3) Pneumonia: Problem comment: - Likely started as viral URI acquired from grandson - I have recommended future influenza and covid vaccinations annually - Admit for treatment with supplemental oxygen and antibiotics (ceftriaxone plus azithromycin). He is also having reactive airway. Continue steroids, increased to 40 mg daily (may need longer taper). As above, I think he should have further outpatient pulmonary w/u when better. Also consult RT and give scheduled duonebs and prn albuterol nebs. May need to consider hypersensitivity pneumonitis or fungal infection if not improving with antibiotics. Status: Acute (4) Chest pain: Problem comment: Acute on chronic. Mild trop bump, already resolved. I suspect he has angina with possible recent HF symptoms as well. Not currently having CP. Most recent trop is reassuring. EKG from ER is reviewed/as above. CTA chest neg for PE. Differential include pleurisy and costochondritis. Will monitor on telemetry, recheck trop in am, and obtain ECHO. He had stress testing in 2022 that was equivocal because he fatigued on treadmill. May benefit from outpatient adenosine stress testing or CT angiogram. Status: Acute (5) Hyponatremia: Problem comment: - sodium in clinic 01/15/25 was 138 - suspect this is related to pneumonia and dehydration - mild, asymptomatic. Received IVF bolus in ER. Recheck Na in am. Status: Acute (6) Hypertension: Problem comment: hold lisinopril for now due to sepsis. Status: Chronic (7) Elevated LFTs: Problem comment: 2018 ALT 60 2021 ALT 65 2022 ALT 229 06/11 ALT 79 01/27/2025 ALT 182, AST 69 - Recheck in am Status: Chronic (8) Dehydration: Problem comment: - was given 1L IV NS in ER. Some improvement noted. Encourage po intake Status: Acute (9) Type 2 diabetes mellitus associated with morbid obesity: Problem comment: Recent diagnosis, HgbA1C on 01/15/25 was 6.9% - now is getting steroids as above, cover while in hospital with ISS A[facility]S Status: Chronic (10) SI (sacroiliac) pain: Problem comment: Patient does not want intervention for this at this time. Oral prednisone may be helpful anyway. May benefit from SI joint injection as outpatient if pain persists. Status: Acute Total Time Spent Total Time Spent: Time spent: Today I spent 75 minutes seeing the patient, discussing the patient with ER staff, reviewing Expanse and EPIC notes/diagnostics, discussing the care plan with our care team that includes social work, PT/OT, pharmacy, RT, long-term and documenting my impressions and plan in the medical record. MEDICAL NECESSITY FOR HOSPITALIZATION Anticipated midnights in the hospital: 2 Admitting diagnosis: Pneumonia with initial presentation of severe sepsis Risk of morbidity and mortality: high Acuity is characterized as high and reflected in: Severe sepsis on presentation in the setting of pneumonia with associated hyponatremia. This patient will require hospital services as outlined in the assessment and plan in order to stabilize and be safely discharged to a lower level of care. Because of the risk and acuity as described above, this patient cannot be managed at a lower level of care. LENGTH OF STAY: 2 IP ? Anticipated LOS>2 midnights due to acuity of clinical presentation requiring inpatient level of care Hospitalist- H&P: HPI History of Present Illness Time Seen by Provider: 20:30 Date Seen: 01/27/25 Chief complaint: Shortness of breath Narrative: Lucho Castellon is a 59 year old male with a history of hypertension and newly diagnosed diabetes mellitus type 2 who presented through the emergency department feeling ill, short of breath, and unable to get into his combine this afternoon. Inocencio says he has been sick since a week ago this past Monday, about 9 days now when he had woken up suddenly at 4:00 a.m. feeling ill with an upper respiratory illness and cough. A few days before that he had been sharing a pop with his 1-year-old grandson who was really sick with a cold at the time, and sure enough Inocencio came down ill a few days later. He felt his glands and tonsils were getting very swollen and went to see someone in urgent care last Olivia. He was prescribed prednisone which he thinks has helped much. He felt his tonsils pop and he could taste the pus that came out of them. He thought he would get better, but instead he felt even more ill and started getting muscle aches and pains, cough, shortness of breath, and shaking chills. He has been getting a pain in the center of his chest when he coughs. This pain radiates to his back. He notes that it is similar to a pain that he has been getting sometimes on and off for years but that has been getting more frequent of late. In the last few months he has noticed more swollen ankles and the pain in his chest comes and goes with an electrical feeling shooting pain down his arms and sometimes up into his neck or jaw. He recalls he had a stress test about 2 years ago which was suboptimal because he could not get his heart rate up. He tells me he does not really want any more workup as an outpatient for that. Almost exactly a year ago he had bronchitis or pneumonia for which he had to be on antibiotics and got nebulizers, but was not hospitalized. Additionally he notes some pains up and down his back, especially on his left side in the SI joint. Inocencio's and grandson are also here with him today. Review of Systems Status of ROS: Reports: 10 or more systems reviewed and unremarkable except as noted in History and below Medical Decision Making Medical Decision Making Code Status: FULL CODE Has patient completed a Health Care Directive: No During This Stay, Who Would You Like To Make Decisions For You In The Event You Are Unable To Make Them For Yourself?: , Aislinn Relevant situational information: Does not want [facility] life support [facility] Medical History (Updated 01/27/25 @ 22:38 by Maren Spencer MD) Type 2 diabetes mellitus associated with morbid obesity ?E11.69 - Type 2 diabetes mellitus with other specified complication (ICD-10) ?E66.01 - Morbid (severe) obesity due to excess calories (ICD-10) Elevated LFTs ?R79.89 - Other specified abnormal findings of blood chemistry (ICD-10) Equivocal stress test ?R94.39 - Abnormal result of other cardiovascular function study (ICD-10) Umbilical hernia ?K42.9 - Umbilical hernia without obstruction or gangrene (ICD-10) Hypertension ?I10 - Essential (primary) hypertension (ICD-10) Laceration without foreign body of abdominal wall, unspecified quadrant with penetration into peritoneal cavity, initial encounter ?S31.619A - Laceration without foreign body of abdominal wall, unspecified quadrant with penetration into peritoneal cavity, initial encounter (ICD-10) Surgical History H/O left inguinal hernia repair ?Z98.890 - Other specified postprocedural states (ICD-10) ?Z87.19 - Personal history of other diseases of the digestive system (ICD-10) H/O abdominal surgery ?Z98.890 - Other specified postprocedural states (ICD-10) Family History Brother Alcohol dependence Mother Breast cancer Brother Diabetes Father High blood pressure Gout Sister High blood pressure Social History (Updated 01/27/25 @ 21:24 by Maren Spencer MD) Narrative: 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 . Denies smoking, quit 50 years ago. 1 whiskey nightly, never more than that. What is your current living situation?: I presently have a place to live Smoking Status: Never smoker How many standard drinks containing alcohol do you have on a typical day: 1 or 2 AUDIT-C Alcohol total score: 0 Non-prescribed substance use: denies use service: No Meds Home Medications and Allergies Home Medications ?Medication ?Instructions ?Recorded ?Confirmed ?Type albuterol sulfate 2.5 mg/3 mL 2.5 mg (3 mL) inhalation Q4-6H PRN 06/18/24 01/27/25 Rx (0.083 %) solution for nebulization shortness of breath or wheezing #75 mL prednisone 20 mg tablet See Rx Instructions PO QDAY Cough 01/23/25 01/27/25 Rx #12 tabs lisinopril 40 mg tablet 40 mg PO DAILY 01/27/25 01/27/25 History Allergies Allergy/AdvReac Type Severity Reaction Status Date / Time No Known Drug Allergies Allergy Verified 01/27/25 17:38 Exam Narrative: Exam Narrative: General: No acute distress. Awake alert oriented x3. Sitting up in a chair at the bedside, eating. HEENT: Normocephalic atraumatic, pupils equally round and reactive to light and accommodation. Oropharynx clear. Mucous membranes are slightly dry. No cervical lymphadenopathy, thyromegaly or carotid bruits. No JVD. Cardiovascular: Regular rate and rhythm. No murmurs, gallops, or rubs. Chest: No increased work of breathing. Tight, expiratory wheezes throughout. Abdomen: Morbidly obese. Bowel sounds present. Soft, nondistended, nontender. Well-healed traumatic scar in the left side of the abdomen. Extremities: 1+ bilateral pitting edema at the ankles, no cyanosis or clubbing. Skin: No jaundice, no pallor, no rashes on visible skin. Neuro: Grossly intact. No focal deficits. Date exam performed: 01/27/2025 Time exam performed: 8:30 p.m. Focused Exam: I have reassessed tissue perfusion after bolus given Current stage of sepsis: Sepsis, resolving. Const: Vital Signs, click to edit/add: Vital Signs - 24 hr 01/27/25 15:14 01/27/25 15:15 01/27/25 16:18 Temperature 101.9 F H Pulse Rate Pulse Rate [Pulse Oximeter] 110 H Respiratory Rate 36 H Blood Pressure Blood Pressure [Ri ght Upper Arm] 137/69 Pulse Oximetry 89 89 92 Oxygen Delivery Me thod Room Air Room Air Nasal Cannula Oxygen Flow Rate 2 01/27/25 16:38 01/27/25 16:53 01/27/25 16:54 Temperature 101.1 F H Pulse Rate 107 H 111 H Pulse Rate [Pulse Oximeter] Respiratory Rate 32 H 36 H Blood Pressure 125/80 Blood Pressure [Ri ght Upper Arm] Pulse Oximetry 91 91 Oxygen Delivery Me thod Oxygen Flow Rate 01/27/25 16:55 01/27/25 17:00 01/27/25 17:09 Temperature Pulse Rate 109 H 110 H Pulse Rate [Pulse Oximeter] Respiratory Rate 32 H 11 L 26 H Blood Pressure Blood Pressure [Ri ght Upper Arm] Pulse Oximetry 93 95 Oxygen Delivery Me thod Nasal Cannula Oxygen Flow Rate 2 01/27/25 17:15 01/27/25 17:30 01/27/25 18:07 Temperature Pulse Rate 102 H 101 H Pulse Rate [Pulse Oximeter] Respiratory Rate 20 16 24 Blood Pressure Blood Pressure [Ri ght Upper Arm] Pulse Oximetry 89 92 Oxygen Delivery Me thod Oxygen Flow Rate 01/27/25 18:09 01/27/25 18:15 01/27/25 18:17 Temperature 98.9 F Pulse Rate 99 93 Pulse Rate [Pulse Oximeter] Respiratory Rate 21 32 H Blood Pressure 117/82 Blood Pressure [Ri ght Upper Arm] Pulse Oximetry 93 91 Oxygen Delivery Me thod Oxygen Flow Rate 01/27/25 18:30 01/27/25 19:10 Temperature Pulse Rate 95 Pulse Rate [Pulse Oximeter] Respiratory Rate 20 Blood Pressure Blood Pressure [Ri ght Upper Arm] Pulse Oximetry 90 91 Oxygen Delivery Me thod Room Air Nasal Cannula Oxygen Flow Rate 2 Hospitalist - H&P: Result Labs Labs: Short CBC 01/27/25 Range/Units 16:27 WBC 14.93 H (4.50-11.00) K/uL Hgb 15.6 (13.5-17.5) gm/dL Hct 44.1 (37.0-53.0) % Plt Count 227 (140-440) K/uL BMP 01/27/25 16:27 Sodium 130 L Potassium 3.8 Chloride 96 Carbon Dioxide 26 BUN 11 Creatinine 0.7 Glucose 126 H Calcium 9.4 Cardiac Enzymes 01/27/25 01/27/25 Range/Units 16:27 18:32 Troponin I 0.06 H* < 0.01 (0.01-0.04) ng/mL Liver Function 01/27/25 Range/Units 16:27 Total Bilirubin 0.7 (0.1-1.5) mg/dL Direct Bilirubin 0.3 (0.0-0.5) mg/dL AST 69 H (12-35) U/L ALT 182 H (4-50) U/L Alkaline Phosphatase 82 (40-150) U/L Albumin 4.3 (3.3-5.0) g/dL 01/27/2025 EKG: Sinus tachycardia, 109 beats per minute, possible anterior infarct, age undetermined. Ordering Physician: Alicia Barnett M.D. Date of Service: 01/27/25 Procedure(s): XR chest 2V Accession Number(s): [id number] cc: Alicia Barnett M.D.; Provider,Not a Local~ For Patients: As a result of the Cures Act, medical imaging exams and procedure reports are released immediately into your electronic medical record. You may view this report before your referring provider. If you have questions, please contact your health care provider. INDICATION: Shortness of breath. COMPARISON: 01/23/2025 and 06/18/2024 TECHNIQUE: PA and lateral views of the chest. FINDINGS: Medical Devices: Oxygen tubing overlies the left upper hemithorax and neck. Lung Volumes: Adequate inspiration. No significant atelectasis. Lungs: Bibasilar subsegmental atelectasis. No coalescent consolidation to indicate bronchopneumonia. Correlate with the patient`s clinical status in this regard. Pleura and Pleural spaces: No significant pleural effusion. No pneumothorax. Mediastinum: Normal cardiomediastinal silhouette. Bony Thorax and Soft Tissues: No significant incidental findings. Chronic unchanged right hemidiaphragmatic eventration. IMPRESSION: Bibasilar subsegmental atelectasis. No coalescent consolidation to indicate bronchopneumonia. Correlate with the patient`s clinical status in this regard. Incidental findings described in the body of the report. Dictated by Bryon Powers MD @ 01/27/2025 4:22:02 PM (Electronically Signed) Ordering Physician: Alicia Barnett M.D. Date of Service: 01/27/25 Procedure(s): CT angio chest PE protocol Accession Number(s): [id number] cc: Alicia Barnett M.D.; Provider,Not a Local~ For Patients: As a result of the Cures Act, medical imaging exams and procedure reports are released immediately into your electronic medical record. You may view this report before your referring provider. If you have questions, please contact your health care provider. INDICATIONS: Shortness of breath. TECHNIQUE: CT chest pulmonary angiogram acquired with 95 cc of Isovue 370 IV contrast. Sagittal, coronal and maximum intensity projection reformatted images submitted for review. COMPARISON: None. FINDINGS: Within the limitations of motion artifact and suboptimal pulmonary artery opacification, there is no evidence of pulmonary embolus. Distal segmental and subsegmental pulmonary emboli are not excluded based on this exam. Main pulmonary artery is normal in caliber. Thoracic aorta is normal in caliber. Heart size is within normal limits. No pathologic lymphadenopathy. No pleural or pericardial effusion. Soft tissues of the thoracic wall are unremarkable. No pneumothorax. Mild near diffuse bilateral bronchial wall thickening. Bilateral subcentimeter nodular and ill-defined ground-glass opacities greatest in the right upper and left lower lobes. Mild consolidation in the posterior left lower lobe. Cholelithiasis. Visualized upper abdomen is otherwise unremarkable. Degenerative changes of the spine. No acute or suspicious osseous abnormality. IMPRESSION: 1. Bilateral subcentimeter nodular and ground-glass opacities with mild left lower lobe consolidation, worrisome for pneumonia. 2. Within the limitations of motion artifact and suboptimal pulmonary artery opacification, there is no evidence of pulmonary embolus. Distal segmental and subsegmental pulmonary emboli are not excluded based on this exam. 3. Bilateral bronchial wall thickening is likely infectious/inflammatory. Dictated by Dong Sigala MD @ 01/27/2025 6:53:37 PM Please note that all CT scans at this facility use dose modulation, iterative reconstruction, and/or weight-based dosing when appropriate to reduce radiation dose to as low as reasonably achievable. Dictated by: Dong Sigala MD @ 01/27/2025 18:54:37 (Electronically Signed)
[2025-01-27 21:14] LABS: Lactate* 1.6 mmol/L (0.5-1.9)
[2025-01-27] MEDS: AZITHROMYCIN 500 MG in 0.9 % SODIUM CHLORIDE 250 ml 250 ML 255 MG IVPB (21:38)
[2025-01-27] MEDS: ENOXAPARIN 40 MG/0.4 ML INJ SUBCUT (22:24)
[2025-01-28] VITALS (19 sets, daily range): BP systolic 137–144; BP diastolic 78–83; PULSE 70–87; RESP 18–22; TEMP 36.6–36.9; O2SAT 88–94
[2025-01-28] MEDS: ALBUTEROL SULFATE 2.5 MG/3 ML VIAL.NEB NEB (01:18)
[2025-01-28] MEDS: FUROSEMIDE 10 MG/ML inj 40 MG IVP ×2 (01:44→14:27)
[2025-01-28] MEDS: IPRAT-ALBUT 0.5-2.5 MG/3 ML NEB 1 NEB IH ×2 (03:11→08:59)
[2025-01-28 06:32] LABS: Hematocrit* 42.3 % (37.0-53.0); Hemoglobin* 14.7 gm/dL (13.5-17.5); Immature Granulocytes Abs Auto 0.10 K/uL (0.00-0.30); Immature Granulocytes Pct Auto 0.6 %; Mean Corpuscular HGB Conc 35 gm/dL (32-36); Mean Corpuscular Hemoglobin 30 pg (26-34); Mean Corpuscular Volume 88 fL (80-100); RDW Coefficient of Variation % 13.1 % (11.5-15.5); Red Blood Count* 4.83 m/uL (4.30-5.90); White Blood Count* 15.85 K/uL (4.50-11.00)
[2025-01-28 06:39] LABS: Lymphocytes Absolute Auto 0.90 K/uL (0.90-2.90); Slide Review Reflex No
[2025-01-28 06:53] LABS: Albumin* 4.0 g/dL (3.3-5.0); Chloride* 96 mmol/L (96-114); Potassium* 4.1 mmol/L (3.6-5.1); Sodium* 130 mmol/L (135-149)
[2025-01-28 06:56] LABS: Alanine Aminotransferase* 136 U/L (4-50); Alkaline Phosphatase* 74 U/L (40-150); Aspartate Amino Transferase* 37 U/L (12-35); Bilirubin Total* 0.5 mg/dL (0.1-1.5); Blood Urea Nitrogen* 13 mg/dL (7-30); Creatinine* 0.8 mg/dL (0.5-1.5); Est. Creatinine Clearance* 96.19; Estimated Glomerular Filt Rate 102 ml/min; Total Protein* 7.3 g/dL (6.0-8.3)
[2025-01-28 06:57] LABS: Calcium* 9.0 mg/dL (8.4-10.6); Glucose* 274 mg/dL (60-115)
--- NOTE | 2025-01-28 07:03 | PC.NURSE ---
End of shift report: Pt was admitted to the floor at 1956. At the beginning of the shift pt was on 2 L O2 via NC to maintain O2 sats above 90% per MD orders. At around 0100, pt reported increased SOB, prn neb was given and MD Spencer was notified. Pt was started on HiFlow NC. HiFlow is currently set at 30 L/min, 30 fiO2, and 36 degrees. Pt is utilizing the urinal at bedside. Pt denies any pain. Pts was at the bedside throughout the night, bed alarm within reach.?
[2025-01-28 07:17] LABS: Anion Gap 4 mEq/L (7-15); Carbon Dioxide* 30 mmol/L (20-32)
--- NOTE | 2025-01-28 07:56 | P.IMPN_ITS ---
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 at 4:53 p.m. on 01/27 - VS and lactate improved after 1L NS bolus, so I will hold off on further IVF bolus for now. Monitor VS. - BC x2 pending Status: Acute (3) Pneumonia: Problem comment: - Likely started as viral URI acquired from grandson - I have recommended future influenza and covid vaccinations annually - Admit for treatment with supplemental oxygen and antibiotics (ceftriaxone plus azithromycin). He is also having reactive airway. Continue steroids, increased to 40 mg daily (may need longer taper). As above, I think he should have further outpatient pulmonary w/u when better. Also consult RT and give scheduled duonebs and prn albuterol nebs. May need to consider hypersensitivity pneumonitis or fungal infection if not improving with antibiotics. - added Mucinex, aerobika. Per RT, nebs changed to p.r.n. - strep pneumo/Legionella ordered, viral respiratory panel pending Status: Acute (4) Chest pain: Problem comment: Acute on chronic. Mild trop bump, already resolved. I suspect he has angina with possible recent HF symptoms as well. Not currently having CP. Most recent trop is reassuring. EKG from ER is reviewed/as above. CTA chest neg for PE. Differential include pleurisy and costochondritis. Will monitor on telemetry. He had stress testing in 2022 that was equivocal because he fatigued on treadmill. May benefit from outpatient adenosine stress testing or CT angiogram. Echo 01/29 Troponin remains flat Status: Acute (5) Hyponatremia: Problem comment: - sodium in clinic 01/15/25 was 138 - suspect this is related to pneumonia and dehydration - mild, asymptomatic. Received IVF bolus in ER. Recheck Na in am. - sodium remains at 130 Status: Acute (6) Hypertension: Problem comment: hold lisinopril for now due to sepsis Status: Chronic (7) Elevated LFTs: Problem comment: 2018 ALT 60 2021 ALT 65 2022 ALT 229 06/11 ALT 79 01/27/2025 ALT 182, AST 69 - trending down Status: Chronic (8) Dehydration: Problem comment: - was given 1L IV NS in ER. Some improvement noted. Encourage po intake Status: Acute (9) Type 2 diabetes mellitus associated with morbid obesity: Problem comment: Recent diagnosis, HgbA1C on 01/15/25 was 6.9% - now is getting steroids as above, cover while in hospital with ISS ACHS Status: Chronic (10) SI (sacroiliac) pain: Problem comment: Patient does not want intervention for this at this time. Oral prednisone may be helpful anyway. May benefit from SI joint injection as outpatient if pain persists. Status: Acute Total Time Spent Total Time Spent: Today I spent 55 minutes seeing the patient, reviewing [facility]panse and EPIC notes/diagnostics, discussing the care plan with our care time that includes social work, PT/OT, pharmacy, RT, penitentiary and documenting my impressions and plan in the medical record. Subjective Date Seen: 01/28/25 Interval history: Patient is seen sitting up in a chair, at bedside. Reports feeling so much better than on admission. Continues on high-flow with some dyspnea. Denies feeling short of breath however. No headache or dizziness. Denies chest pain. Tolerating orals without nausea vomiting. Cough is loose and productive. Patient is very anxious about returning home to get back to work in the [employer], tearful at times. CT showing left lower lobe consolidation pneumonia. Reports recurrent infections every January. Clark exposed to multiple environmental dusts, allergens, toxins. Continues on IV antibiotics, high-flow nasal cannula, steroids. Echocardiogram for today. RT following. Exam Narrative: Exam Narrative: PHYSICAL EXAM General: Pleasant, conversant, NAD HEENT: Normocephalic, atraumatic, sclera white, EOMI, oral mucosa moist Cardiovascular: RRR, S1S2. Non pitting edema Pulmonary: Diffuse coarse breath sounds without expiratory wheezes, mild dyspnea with HFNC Abdominal: Soft, nondistended, NTTP Neurological: Alert, answering questions appropriately, cranial nerves intact, no focal findings Extremities: No gross joint deformity or swelling. AROMI. Neurovascularly intact Skin: Warm, dry. Const: Vital Signs, click to edit/add: Vital Signs - 24 hr 01/27/25 15:14 01/27/25 15:15 01/27/25 16:18 Temperature 101.9 F H Pulse Rate Pulse Rate [Pulse Oximeter] 110 H Respiratory Rate 36 H Blood Pressure Blood Pressure [Le ft Arm] Blood Pressure [Ri ght Upper Arm] 137/69 Pulse Oximetry 89 89 92 Oxygen Delivery Me thod Room Air Room Air Nasal Cannula Oxygen Flow Rate 2 Fraction of Inspir ed Oxygen 01/27/25 16:38 01/27/25 16:53 01/27/25 16:54 Temperature 101.1 F H Pulse Rate 107 H 111 H Pulse Rate [Pulse Oximeter] Respiratory Rate 32 H 36 H Blood Pressure 125/80 Blood Pressure [Le ft Arm] Blood Pressure [Ri ght Upper Arm] Pulse Oximetry 91 91 Oxygen Delivery Me thod Oxygen Flow Rate Fraction of Inspir ed Oxygen 01/27/25 16:55 01/27/25 17:00 01/27/25 17:09 Temperature Pulse Rate 109 H 110 H Pulse Rate [Pulse Oximeter] Respiratory Rate 32 H 11 L 26 H Blood Pressure Blood Pressure [Le ft Arm] Blood Pressure [Ri ght Upper Arm] Pulse Oximetry 93 95 Oxygen Delivery Me thod Nasal Cannula Oxygen Flow Rate 2 Fraction of Inspir ed Oxygen 01/27/25 17:15 01/27/25 17:30 01/27/25 18:07 Temperature Pulse Rate 102 H 101 H Pulse Rate [Pulse Oximeter] Respiratory Rate 20 16 24 Blood Pressure Blood Pressure [Le ft Arm] Blood Pressure [Ri ght Upper Arm] Pulse Oximetry 89 92 Oxygen Delivery Me thod Oxygen Flow Rate Fraction of Inspir ed Oxygen 01/27/25 18:09 01/27/25 18:15 01/27/25 18:17 Temperature 98.9 F Pulse Rate 99 93 Pulse Rate [Pulse Oximeter] Respiratory Rate 21 32 H Blood Pressure 117/82 Blood Pressure [Le ft Arm] Blood Pressure [Ri ght Upper Arm] Pulse Oximetry 93 91 Oxygen Delivery Me thod Oxygen Flow Rate Fraction of Inspir ed Oxygen 01/27/25 18:30 01/27/25 19:10 01/27/25 19:57 Temperature 99.2 F Pulse Rate 95 Pulse Rate [Pulse Oximeter] 87 Respiratory Rate 20 22 Blood Pressure Blood Pressure [Le ft Arm] 125/71 Blood Pressure [Ri ght Upper Arm] Pulse Oximetry 90 91 92 Oxygen Delivery Me thod Room Air Nasal Cannula Nasal Cannula Oxygen Flow Rate 2 2 Fraction of Inspir ed Oxygen 01/27/25 19:57 01/27/25 21:09 01/27/25 23:00 Temperature Pulse Rate Pulse Rate [Pulse Oximeter] 87 Respiratory Rate 22 22 Blood Pressure Blood Pressure [Le ft Arm] Blood Pressure [Ri ght Upper Arm] Pulse Oximetry 92 92 Oxygen Delivery Me thod Nasal Cannula Oxygen Flow Rate 2 Fraction of Inspir ed Oxygen 01/27/25 23:00 01/27/25 23:00 01/27/25 23:00 Temperature 98.6 F Pulse Rate 96 Pulse Rate [Pulse Oximeter] 86 Respiratory Rate 20 20 Blood Pressure Blood Pressure [Le ft Arm] 132/78 Blood Pressure [Ri ght Upper Arm] Pulse Oximetry 92 92 Oxygen Delivery Me thod Nasal Cannula Nasal Cannula Oxygen Flow Rate 2 2 Fraction of Inspir ed Oxygen 01/28/25 01:22 01/28/25 03:00 01/28/25 03:22 Temperature 98.3 F Pulse Rate Pulse Rate [Pulse Oximeter] 79 Respiratory Rate 22 Blood Pressure Blood Pressure [Le ft Arm] 138/82 Blood Pressure [Ri ght Upper Arm] Pulse Oximetry 92 Oxygen Delivery Me thod Nasal Cannula High Flow Nasal Cannul a Oxygen Flow Rate 20 Fraction of Inspir ed Oxygen 25 25 28 01/28/25 03:51 01/28/25 05:15 01/28/25 07:00 Temperature Pulse Rate Pulse Rate [Pulse Oximeter] Respiratory Rate 22 Blood Pressure Blood Pressure [Le ft Arm] Blood Pressure [Ri ght Upper Arm] Pulse Oximetry 93 Oxygen Delivery Me thod High Flow Nasal Ca nnula Oxygen Flow Rate 20 Fraction of Inspir ed Oxygen 30 30 30 01/28/25 07:00 01/28/25 07:00 Temperature 97.9 F Pulse Rate 83 Pulse Rate [Pulse Oximeter] 81 Respiratory Rate 22 Blood Pressure Blood Pressure [Le ft Arm] 137/79 Blood Pressure [Ri ght Upper Arm] Pulse Oximetry 93 Oxygen Delivery Me thod High Flow Nasal Ca nnula Oxygen Flow Rate 20 Fraction of Inspir ed Oxygen 30 Labs Labs: Laboratory Results - last 24 hr 01/27/25 01/27/25 01/27/25 15:55 16:27 18:32 WBC 14.93 H RBC 5.07 Hgb 15.6 Hct 44.1 MCV 87 MCH 31 MCHC 35 RDW Coeff of Scot 13.0 Plt Count 227 Neut % (Auto) 83.2 H Lymph % (Auto) 7.8 L [place] % (Auto) 8.0 Eos % (Auto) 0.1 Baso % (Auto) 0.2 Neut # (Auto) 12.40 H Lymph # (Auto) 1.20 [place] # (Auto) 1.20 H Eos # (Auto) 0.00 Baso # (Auto) 0.00 Abs Immat Gran (auto) 0.10 Imm/Tot Granulo (auto) 0.7 VBG pH 7.456 H VBG pCO2 39 L VBG pO2 43.6 VBG HCO3 27 Sodium 130 L Potassium 3.8 Chloride 96 Carbon Dioxide 26 Anion Gap 8 BUN 11 Creatinine 0.7 Estimated Creat Clear 109.93 Estimated GFR 106 Glucose 126 H Lactate 2.3 H Calcium 9.4 Magnesium 1.9 Total Bilirubin 0.7 Direct Bilirubin 0.3 AST 69 H ALT 182 H Alkaline Phosphatase 82 Troponin I 0.06 H* < 0.01 C-Reactive Protein 2.4 H Total Protein 7.6 Albumin 4.3 Procalcitonin 0.13 SARS-CoV-2 (PCR) Negative SARS-CoV-2 Monoscreen Negative Influenza Type A (PCR) Negative PCR FLU A Influenza Type B (PCR) Negative PCR FLU B RSV (PCR) Negative PCR RSV 01/27/25 01/28/25 20:41 06:12 WBC 15.85 H RBC 4.83 Hgb 14.7 Hct 42.3 MCV 88 MCH 30 MCHC 35 RDW Coeff of Scot 13.1 Plt Count 234 Neut % (Auto) 91.3 H Lymph % (Auto) 5.4 L [place] % (Auto) 2.6 Eos % (Auto) 0.0 Baso % (Auto) 0.1 Neut # (Auto) 14.50 H Lymph # (Auto) 0.90 [place] # (Auto) 0.40 Eos # (Auto) 0.00 Baso # (Auto) 0.00 Abs Immat Gran (auto) 0.10 Imm/Tot Granulo (auto) 0.6 VBG pH VBG pCO2 VBG pO2 VBG HCO3 Sodium 130 L Potassium 4.1 Chloride 96 Carbon Dioxide 30 Anion Gap 4 L BUN 13 Creatinine 0.8 Estimated Creat Clear 96.19 Estimated GFR 102 Glucose 274 H Lactate 1.6 Calcium 9.0 Magnesium Total Bilirubin 0.5 Direct Bilirubin AST 37 H ALT 136 H Alkaline Phosphatase 74 Troponin I < 0.01 C-Reactive Protein 6.0 H Total Protein 7.3 Albumin 4.0 Procalcitonin SARS-CoV-2 (PCR) Monoscreen Influenza Type A (PCR) Influenza Type B (PCR) RSV (PCR)
[2025-01-28 08:04] LABS: Lab Add On Test New Spec Needed
[2025-01-28 08:22] LABS: HCO3 VBG 30 mmol/L (21-28); PCO2 VBG 44 mmHG (40-50); PO2 VBG 42.6 mmHG (25-47); pH VBG 7.442 (7.32-7.43)
[2025-01-28] MEDS: guaiFENesin 600 MG TAB.ER.12H 1200 MG PO ×2 (08:59→20:39)
[2025-01-28] MEDS: AZITHROMYCIN 250 MG TABLET PO (12:05)
[2025-01-28] MEDS: SODIUM CHLORIDE 0.9 % (FLUSH) 10 ML SYRINGE 5 ML IVF ×3 (12:05→20:40)
[2025-01-28] MEDS: PERFLUTREN LIPID MICROSPHERES 2 ML VIAL IVP (12:39)
[2025-01-28 14:42] LABS: S pneumo Ag Urine S. pneumo Negative (Negative)
[2025-01-28 15:17] LABS: NT Pro B Type NatriureticPept* 60 pg/mL (See Note)
--- NOTE | 2025-01-28 15:20 | RESP.RT ---
Patient continues to be on .30HFNC at 30Lpm temp 36 degrees SATing 91%. Chest X-ray does not show significant vascular congestion or mucus plugging. Patient states that he typically has fall allergies. Feet appeared to be slightly swollen and patient states that he has increased difficulty breathing when laying down and with activity. Patient has no significant smoking history and has never been on supplemental O2. Patient was given an Aerobika to assist with mucus clearance as his lung sounds are coarse. This morning he did have an expiratory wheeze, but that has resolved after Aerobika treatment and some fluid coming off. Patient currently does not have a diagnosis that would support home O2, so we will continue to wean O2 as tolerated. We will need to continue to encourage walking and deep breathing exercises to assist with weaning off supplemental O2.
[2025-01-28] MEDS: cefTRIAXone 1 GM in 0.9 % SODIUM CHLORIDE Mini-bag 100 ML IVPB (18:46)
--- NOTE | 2025-01-28 19:53 | PC.NURSE ---
End of shift [id number] - Pt alert, oriented, cooperative. Up independently in room and observed to ambulate in halls with spouse. Denies pain, noted to become SOB with exertion. RN provided extensive education r/t breathing techniques, medications, and equipment use. Pt and family receptive to teaching. Pt eager to d/c to home, encouraged to participate in prescribed and recommended treatments. Tolerating high flow during majority of shift. Requested to take a break from high flow and was able to maintain O2 saturation at 90% per MD order with 2L O2 via nasal cannula. Pt appears to be resting comfortably at end of shift with call light within reach.
[2025-01-28] MEDS: INSULIN ASPART 100 UNIT/ML SUBCUT (20:37)
[2025-01-28] MEDS: ENOXAPARIN 40 MG/0.4 ML INJ SUBCUT (20:39)
[2025-01-29 02:00] VITALS: BP 142/92; PULSE 67; RESP 18; TEMP 36.6; O2SAT 91
--- NOTE | 2025-01-29 05:34 | PC.NURSE ---
Pt refused Hi Flow this night. Maintain 90% O2 on 2L NC. Was on RA for about two hours before desating to high 80s.
[2025-01-29 06:06] LABS: HCO3 VBG 33 mmol/L (21-28); PCO2 VBG 58 mmHG (40-50); PO2 VBG 34.3 mmHG (25-47); pH VBG 7.368 (7.32-7.43)
[2025-01-29 06:12] LABS: Hematocrit* 45.8 % (37.0-53.0); Hemoglobin* 15.7 gm/dL (13.5-17.5); Immature Granulocytes Pct Auto 1.2 %; Lymphocytes Absolute Auto 2.30 K/uL (0.90-2.90); Mean Corpuscular HGB Conc 34 gm/dL (32-36); Mean Corpuscular Hemoglobin 31 pg (26-34); Mean Corpuscular Volume 90 fL (80-100); RDW Coefficient of Variation % 13.4 % (11.5-15.5); Red Blood Count* 5.12 m/uL (4.30-5.90); White Blood Count* 12.98 K/uL (4.50-11.00)
[2025-01-29 06:14] LABS: Immature Granulocytes Abs Auto 0.20 K/uL (0.00-0.30); Slide Review Reflex No
[2025-01-29 06:22] LABS: Chloride* 96 mmol/L (96-114); Potassium* 4.0 mmol/L (3.6-5.1); Sodium* 134 mmol/L (135-149)
[2025-01-29 06:25] LABS: Anion Gap 6 mEq/L (7-15); Blood Urea Nitrogen* 18 mg/dL (7-30); Calcium* 9.3 mg/dL (8.4-10.6); Carbon Dioxide* 32 mmol/L (20-32); Creatinine* 0.9 mg/dL (0.5-1.5); Est. Creatinine Clearance* 85.50; Estimated Glomerular Filt Rate 98 ml/min; Glucose* 157 mg/dL (60-115)
[2025-01-29 07:00] VITALS: PULSE 80; RESP 18; O2SAT 90
[2025-01-29 07:30] VITALS: BP 138/88; PULSE 69; RESP 18; TEMP 36.7; O2SAT 90
[2025-01-29] MEDS: guaiFENesin 600 MG TAB.ER.12H 1200 MG PO (08:35)
[2025-01-29] MEDS: SODIUM CHLORIDE 0.9 % (FLUSH) 10 ML SYRINGE 5 ML IVF (08:35)
--- NOTE | 2025-01-29 10:46 | PM.DS1 ---
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 Normal LV size, normal wall thickness, normal function with an estimated EF of 60 - 65%. 2. Right ventricular cavity size is normal, global systolic RV function is normal. 3. No significant valve disease detected. 4. The inferior vena cava is dilated, respiratory size variation greater than 50%. BNP 60 Received 2 doses lasix during hospital stay prior to completion of ECHO with adequate urine output Remains mildly hypoxic at time of discharge, low 90s at rest, upper 80s with ambulation. PCO2 58 following HFNC therapy yesterday. No qualifiers for home oxygen. Is anxious to return home. Understands to rest, encouraged not to return to work immediately, instructed to take frequent breaks with activity. Recommend outpatient follow-up with pulmonology - Dr. Keene to refer for this. Consider outpatient sleep study. (2) Sepsis: Status: Resolved Problem details: RESOLVED - secondary to pneumonia - was severe sepsis initially with fever, leukocytosis, tachycardia, tachypnea, elevated lactate - last fever 101.1? at 4:53 p.m. on 01/27 - VS and lactate improved after 1L NS bolus, so I will hold off on further IVF bolus for now. Monitor VS. - BC x2 NGTD (3) Pneumonia: Status: Acute Problem details: - Likely started as viral URI acquired from grandson - I have recommended future influenza and covid vaccinations annually - Admit for treatment with supplemental oxygen and antibiotics (ceftriaxone plus azithromycin). He is also having reactive airway. Continue steroids, increased to 40 mg daily (may need longer taper). As above, I think he should have further outpatient pulmonary w/u when better. Also consult RT and give scheduled duonebs and prn albuterol nebs. May need to consider hypersensitivity pneumonitis or fungal infection if not improving with antibiotics. - added Mucinex, aerobika. Per RT, nebs changed to p.r.n. - strep pneumo/Legionella NEGATIVE, viral respiratory panel remains pending at discharge Received IV ceftriaxone, oral azithromycin during hospital course. Discharged with doxycycline to complete 10 day course of antibiotics. Will continue with Mucinex, aerobika, prednisone to complete 5 day course, albuterol p.r.n.. Remains mildly hypoxic as discussed above. Close outpatient follow-up with PCP. (4) Chest pain: Status: Resolved Problem details: RESOLVED Acute on chronic. Mild trop bump, already resolved. I suspect he has angina with possible recent HF symptoms as well. Not currently having CP. Most recent trop is reassuring. EKG from ER is reviewed/as above. CTA chest neg for PE. Differential include pleurisy and costochondritis. Will monitor on telemetry. He had stress testing in 2022 that was equivocal because he fatigued on treadmill. May benefit from outpatient adenosine stress testing or CT angiogram. Echo 01/29 as above Troponin flat (5) Hyponatremia: Status: Acute Problem details: - sodium in clinic 01/15/25 was 138 - suspect this is related to pneumonia and dehydration - mild, asymptomatic. Received IVF bolus in ER. Recheck Na in am. - sodium remains at 130 Sodium 134 time of discharge (6) Hypertension: Status: Chronic Problem details: hold lisinopril for now due to sepsis Resume lisinopril at discharge, pressures have been normotensive (7) Elevated LFTs: Status: Chronic Problem details: 2018 ALT 60 2021 ALT 65 2022 ALT 229 06/11 ALT 79 01/27/2025 ALT 182, AST 69 - trending down Recheck with PCP following resolution of pneumonia. (8) Dehydration: Status: Acute Problem details: - was given 1L IV NS in ER. Some improvement noted. Encourage po intake (9) Type 2 diabetes mellitus associated with morbid obesity: Status: Chronic Problem details: Recent diagnosis, HgbA1C on 01/15/25 was 6.9% - now is getting steroids as above, cover while in hospital with ISS ACHS Will complete 5 day course of oral prednisone. Monitoring blood sugars. Adhere to a diabetic diet. (10) SI (sacroiliac) pain: Status: Acute Problem details: Patient does not want intervention for this at this time. Oral prednisone may be helpful anyway. May benefit from SI joint injection as outpatient if pain persists. DS: Summary Hospital Course Hospital Course: Course of care and details as noted above. Patient admitted to the medical floor with sepsis in setting of acute pneumonia. 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 Never a smoker. Acutely hypoxic which while initially improved, persisted at time of discharge. Discharged on oral doxycycline, prednisone, Mucinex, albuterol, continuing vibratory exercises. Encouraged to rest and take frequent breaks. Will need outpatient follow-up with pulmonology for further workup and testing. Consider sleep study as well. Close outpatient follow-up with PCP. Status at Discharge Functional status at discharge: independent ambulation Overall status at discharge: patient is progressing back to baseline Time Spent with Patient Time attestation: Total time spent providing and/or coordinating discharge services: Time spent: Greater than 30 minutes Exam Narrative: Exam Narrative: PHYSICAL EXAM General: Pleasant, conversant, NAD Cardiovascular: RRR Pulmonary: Diffusely coarse, no expiratory wheezes, no dyspnea on 1 L Neurological: Alert, answering questions appropriately Skin: Warm, dry. Const: Vital Signs, click to edit/add: Vital Signs - 24 hr 01/28/25 12:00 01/28/25 13:06 01/28/25 13:50 Temperature 98.3 F Pulse Rate Pulse Rate [Pulse Oximeter] 70 Pulse Rate [Right Radial] Respiratory Rate 20 Blood Pressure [Le ft Arm] 137/79 Pulse Oximetry 91 Oxygen Delivery Me thod High Flow Nasal Ca nnula Oxygen Flow Rate 30 Fraction of Inspir ed Oxygen 30 30 30 01/28/25 15:00 01/28/25 15:00 01/28/25 16:00 Temperature Pulse Rate Pulse Rate [Pulse Oximeter] Pulse Rate [Right Radial] Respiratory Rate 20 Blood Pressure [Le ft Arm] Pulse Oximetry 88 88 Oxygen Delivery Me thod High Flow Nasal Ca nnula Oxygen Flow Rate 30 Fraction of Inspir ed Oxygen 30 30 01/28/25 16:07 01/28/25 16:55 01/28/25 19:04 Temperature 98.4 F 98.3 F Pulse Rate 78 Pulse Rate [Pulse Oximeter] 80 Pulse Rate [Right Radial] 87 Respiratory Rate 20 18 Blood Pressure [Le ft Arm] 137/83 144/78 H Pulse Oximetry 90 90 Oxygen Delivery Me thod Nasal Cannula Nasal Cannula Oxygen Flow Rate 2 2 Fraction of Inspir ed Oxygen 01/28/25 19:40 01/28/25 22:49 01/28/25 22:50 Temperature 98.3 F Pulse Rate 85 Pulse Rate [Pulse Oximeter] 82 Pulse Rate [Right Radial] 82 Respiratory Rate 18 Blood Pressure [Le ft Arm] 138/81 Pulse Oximetry 92 92 Oxygen Delivery Me thod Nasal Cannula Oxygen Flow Rate 2 Fraction of Inspir ed Oxygen 01/28/25 22:52 01/28/25 22:53 01/29/25 02:00 Temperature 98 F Pulse Rate Pulse Rate [Pulse Oximeter] 82 67 Pulse Rate [Right Radial] 82 Respiratory Rate 18 18 18 Blood Pressure [Le ft Arm] 142/92 H Pulse Oximetry 92 91 Oxygen Delivery Me thod Nasal Cannula Nasal Cannula Oxygen Flow Rate 2 1 Fraction of Inspir ed Oxygen 01/29/25 07:00 01/29/25 07:00 01/29/25 07:00 Temperature Pulse Rate 80 Pulse Rate [Pulse Oximeter] Pulse Rate [Right Radial] Respiratory Rate 18 Blood Pressure [Le ft Arm] Pulse Oximetry 90 90 Oxygen Delivery Me thod Nasal Cannula Oxygen Flow Rate 2 Fraction of Inspir ed Oxygen 01/29/25 07:30 01/29/25 07:30 Temperature 98.1 F Pulse Rate Pulse Rate [Pulse Oximeter] 69 69 Pulse Rate [Right Radial] Respiratory Rate 18 18 Blood Pressure [Le ft Arm] 138/88 Pulse Oximetry 90 Oxygen Delivery Me thod Nasal Cannula Oxygen Flow Rate 2 Fraction of Inspir ed Oxygen DS: Data Data Completed and Pending Pending studies at discharge: Viral respiratory panel Labs on day of discharge: Labs from last 24 hours 01/29/25 01/28/25 01/28/25 05:56 14:07 13:58 WBC 12.98 H RBC 5.12 Hgb 15.7 Hct 45.8 MCV 90 MCH 31 MCHC 34 RDW Coeff of Scot 13.4 Plt Count 265 Neut % (Auto) 73.7 H Lymph % (Auto) 17.7 L [place] % (Auto) 6.7 Eos % (Auto) 0.5 Baso % (Auto) 0.2 Neut # (Auto) 9.60 H Lymph # (Auto) 2.30 [place] # (Auto) 0.90 Eos # (Auto) 0.10 Baso # (Auto) 0.00 Abs Immat Gran (auto) 0.20 Imm/Tot Granulo (auto) 1.2 VBG pH 7.368 VBG pCO2 58 H VBG pO2 34.3 VBG HCO3 33 H Sodium 134 L Potassium 4.0 Chloride 96 Carbon Dioxide 32 Anion Gap 6 L BUN 18 Creatinine 0.9 Estimated Creat Clear 85.50 Estimated GFR 98 Glucose 157 H Calcium 9.3 NT-Pro-B Natriuret Pep Urine L. pneumophilia Ag L. pneumo Negative Urine Strep pneumoniae Ag S. pneumo Negative Lab Acknowledgement Test Added 01/28/25 06:12 WBC RBC Hgb Hct MCV MCH MCHC RDW Coeff of Scot Plt Count Neut % (Auto) Lymph % (Auto) [place] % (Auto) Eos % (Auto) Baso % (Auto) Neut # (Auto) Lymph # (Auto) [place] # (Auto) Eos # (Auto) Baso # (Auto) Abs Immat Gran (auto) Imm/Tot Granulo (auto) VBG pH VBG pCO2 VBG pO2 VBG HCO3 Sodium Potassium Chloride Carbon Dioxide Anion Gap BUN Creatinine Estimated Creat Clear Estimated GFR Glucose Calcium NT-Pro-B Natriuret Pep 60 Urine L. pneumophilia Ag Urine Strep pneumoniae Ag Lab Acknowledgement Preliminary micro results at discharge 01/27/25 16:47 Blood Culture - Preliminary Blood NO GROWTH AFTER 24 HOURS 01/27/25 16:27 Blood Culture - Preliminary Blood NO GROWTH AFTER [address] scan - chest: Attestation: I have reviewed the pertinent imaging results. Radiologist's impression: Within the limitations of motion artifact and suboptimal pulmonary artery opacification, there is no evidence of pulmonary embolus. Distal segmental and subsegmental pulmonary emboli are not excluded based on this exam. Main pulmonary artery is normal in caliber. Thoracic aorta is normal in caliber. Heart size is within normal limits. No pathologic lymphadenopathy. No pleural or pericardial effusion. Soft tissues of the thoracic wall are unremarkable. No pneumothorax. Mild near diffuse bilateral bronchial wall thickening. Bilateral subcentimeter nodular and ill-defined ground-glass opacities greatest in the right upper and left lower lobes. Mild consolidation in the posterior left lower lobe. Cholelithiasis. Visualized upper abdomen is otherwise unremarkable. Degenerative changes of the spine. No acute or suspicious osseous abnormality. IMPRESSION: 1. Bilateral subcentimeter nodular and ground-glass opacities with mild left lower lobe consolidation, worrisome for pneumonia. 2. Within the limitations of motion artifact and suboptimal pulmonary artery opacification, there is no evidence of pulmonary embolus. Distal segmental and subsegmental pulmonary emboli are not excluded based on this exam. 3. Bilateral bronchial wall thickening is likely infectious/inflammatory. Chest x-ray: Attestation: I have reviewed the pertinent imaging results. Radiologist's impression: Medical Devices: Oxygen tubing overlies the left upper hemithorax and neck. Lung Volumes: Adequate inspiration. No significant atelectasis. Lungs: Bibasilar subsegmental atelectasis. No coalescent consolidation to indicate bronchopneumonia. Correlate with the patient`s clinical status in this regard. Pleura and Pleural spaces: No significant pleural effusion. No pneumothorax. Mediastinum: Normal cardiomediastinal silhouette. Bony Thorax and Soft Tissues: No significant incidental findings. Chronic unchanged right hemidiaphragmatic eventration. IMPRESSION: Bibasilar subsegmental atelectasis. No coalescent consolidation to indicate bronchopneumonia. Correlate with the patient`s clinical status in this regard. Incidental findings described in the body of the report. Discharge Plan Discharge Disposition: Home, Self-Care Date of Admission: 01/27/25 19:58 Attending Provider on Discharge: Yue Gottlieb Primary Care Provider: Provider,Not a Local Condition: Improved Anticipated Discharge Date/Time: 01/29/25 10:25 Discharge Medications: New prednisone 20 mg Tablet 40 mg PO DAILYWM 3 Days Qty: 6 0RF Rx Instructions: Take this once daily 01/30-02/01 guaifenesin [Mucinex] 600 mg Tablet Extended Release 12hr 1,200 mg PO BID Qty: 10 0RF doxycycline hyclate 100 mg capsule 100 mg PO BID Qty: 16 0RF albuterol sulfate 90 mcg/actuation HFA aerosol inhaler 1 inh inhalation QID PRN (Reason: shortness of breath or wheezing) Qty: 6.7 0RF Rx Instructions: WITH SPACER Continued albuterol sulfate 2.5 mg /3 mL (0.083 %) solution for nebulization 2.5 mg inhalation Q4-6H PRN (Reason: shortness of breath or wheezing) Qty: 75 0RF lisinopril 40 mg tablet 40 mg PO DAILY Discontinued prednisone 20 mg tablet See Rx Instructions PO QDAY Qty: 12 0RF Rx Instructions: 3 po as single dose days 1-2, 2 po as single dose days 3-4, 1 po days 5-6, then discontinue. Discharge Orders: Discharge Order (Routine); Ordered 01/29/25 Ordered By: Yue Gottlieb Patient Education: Doxycycline (By mouth), Albuterol (By breathing), Prednisone (By mouth), Antitussive/Decongestant/Expectorant (By mouth), Pneumonia (DC), Acute Respiratory Failure (GEN) Additional Instructions: TAKE DOXYCYCLINE UNTIL FINISHED TAKE PREDNISONE 40MG ONCE DAILY 01/30-02/01 - YOU DO NOT NEED TO TAPER. WATCH YOUR BLOOD SUGARS. ADHERE TO DIABETIC DIET TO HELP CONTROL THESE. USE ALBUTEROL INHALER NEEDED WHEN OUT AND ABOUT. USE THE NEBULIZER WHILE YOU ARE AT HOME. DO NOT COMBINE THESE AND USE THEM MORE FREQUENTLY THAN PRESCRIBED. CONTINUE TO USE AEROBIKA AND MUCINEX. ELEVATE HEAD OF BED WHEN SLEEPING. REST AND STAY HYDRATED. YOU MAY CONTINUE TO FEEL SHORT OF BREATH WITH ACTIVITY. YOU WILL NEED TO TAKE MORE FREQUENT BREAKS. RECOMMEND OUTPATIENT PULMONOLOGY CONSULT AND TESTING - DR. KEENE TO REFER YOU FOR THIS CONSIDER OUTPATIENT SLEEP STUDY - DR. KEENE TO REFER Activity Level: Activity as Tolerated Discharge Diet: Diabetic Follow Up Appointments: Provider,Not a Local [Primary Care Provider, Family Practice] Guilherme Keene MD [Referring, Family Practice] - 02/03/25 1:15 pm Referral Note: [facility] for hospital follow-up. Forms: [facility], [facility] Info Inst[facility]
--- NOTE | 2025-01-29 11:35 | PC.NURSE ---
Discharge: Patient pleasant and cooperative, A&O. VSS, afebrile. SpO2 maintained above 87% on RA. Denies pain. IV removed with tip intact. Discharge instructions provided, all questions answered. Discharged to home with via wheelchair.
== END 2025-01-29 11:20 | disposition home or self-care (01) | DRG 871 ==
LOC: ED 19:16 → MEDSURG 19:43
PROVIDERS: Family Medicine; Physician Assistant; Admitting Provider Nurse Practitioner; Emergency Provider Family Medicine; Visit Provider Nurse Practitioner
DX: A41.9 Sepsis, unspecified organism (principal); J18.9 Pneumonia, unspecified organism; J96.01 Acute respiratory failure with hypoxia; E87.1 Hypo-osmolality and hyponatremia; R65.20 Severe sepsis without septic shock; E86.0 Dehydration; E11.9 Type 2 diabetes mellitus without complications; E66.01 Morbid (severe) obesity due to excess calories; Z68.41 Body mass index [BMI] 40.0-44.9, adult; R74.8 Abnormal levels of other serum enzymes; R07.9 Chest pain, unspecified; Z77.120 Contact with and (suspected) exposure to mold (toxic); Z57.4 Occupational exposure to toxic agents in agriculture; I10 Essential (primary) hypertension; M53.3 Sacrococcygeal disorders, not elsewhere classified
CPT/HCPCS: 36415; 71046; 71275; 80048; 80053; 80076; 82803; 82962; 83605; 83735; 83880; 84145; 84484; 85025; 86140; 86308; 87040; 87252; 87449; 87631; 87899; 93005; 93306; 94640; 94664; 94761; 99285; A9270; J0456; J0696; J1650; J1938; J2919; J3475; J7030; J7050; J7512; Q9957; Q9967